=== PATIENT | female | born 1975 | race Caucasian/White ===

== ENCOUNTER → 2017-08-18 | Outpatient (CLI) | payer OTHER | END | disposition home or self-care (01) | LOC: CFH 15:33 | DX: Z12.31 Encounter for screening mammogram for malignant neoplasm of breast (principal) | CPT/HCPCS: G0202 ==

== ENCOUNTER → 2018-06-16 | Outpatient (CLI) | payer OTHER ==
[~2018-06-16] MED LIST: None per pt
[2018-06-16 15:34] LABS: BASOPHILS # (AUTO) 0.04 x10^3/uL (0-0.1); BASOPHILS % (AUTO) 1 % (0-1); EOSINOPHILS # (AUTO) 0.08 x10^3/uL (0-0.4); EOSINOPHILS % (AUTO) 1 % (1-7); LYMPHOCYTES # (AUTO) 2.99 x10^3/uL (1-3.4); LYMPHOCYTES % (AUTO) 36 % (22-44); MD NO; MEAN CORPUSCULAR HEMOGLOBIN 30.5 pg (27.0-34.8); MEAN CORPUSCULAR HGB CONC 34.3 g/dL (32.4-35.8); MEAN CORPUSCULAR VOLUME 88.8 fL (80-100); MEAN PLATELET VOLUME 8.3 fL (7.4-10.4); MONOCYTES # (AUTO) 0.66 x10^3/uL (0.2-0.8); MONOCYTES % (AUTO) 8 % (2-9); NEUTROPHILS # (AUTO) 4.58 x10^3/uL (1.8-6.8); NEUTROPHILS % (AUTO) 55 % (42-75); PLATELET COUNT 314 x10^3/uL (130-400); RED BLOOD COUNT 4.65 x10^6/uL (3.82-5.3); RED CELL DISTRIBUTION WIDTH 12.5 % (9.6-15.2)
[2018-06-16 16:17] LABS: MICROSCOPIC AUTO
[2018-06-16 16:18] LABS: CULTURE INDICATED? NO
== END | disposition home or self-care (01) ==
LOC: STAR 14:42
PROVIDERS: ATTEND Obstetrics & Gynecology
DX: Z01.818 Encounter for other preprocedural examination (principal); N92.0 Excessive and frequent menstruation with regular cycle
CPT/HCPCS: 36415; 81001; 84702; 85025

== ENCOUNTER 2018-06-23 09:28 | Day surgery (SDC) | payer OTHER ==
[~2018-06-23] VITALS: Ht 162.6 cm; Wt 90.9 kg
[2018-06-23] MEDS ORDERED: LACTATED RINGERS 1,000 ML IV SCH (09:52)
[2018-06-23] MEDS ORDERED: ACETAMINOPHEN 500 MG TABLET PO ONE (10:00)
[2018-06-23] MEDS ORDERED: GABAPENTIN 300 MG CAPSULE PO ONE (10:00)
[2018-06-23] MEDS ORDERED: PROPOFOL 10 MG/ML, 20ML ONE (10:17)
[2018-06-23] MEDS ORDERED: MIDAZOLAM 1 MG/ML, 2ML ONE (10:17)
[2018-06-23] MEDS ORDERED: LIDOCAINE-MPF 2% ,5ML ONE (10:17)
[2018-06-23] MEDS ORDERED: ROCURONIUM 10MG/ML,5ML ONE (10:17)
[2018-06-23] MEDS ORDERED: DEXAMETHASONE 4 MG/ML, 1ML ONE (10:17)
[2018-06-23] MEDS ORDERED: GLYCOPYRROLATE 0.2MG/1ML, 5ML ONE (10:17)
[2018-06-23] MEDS ORDERED: FENTANYL PF 250 MCG/5ML ONE (10:18)
[2018-06-23] MEDS ORDERED: BUPIVACAINE/PF-EPI 0.5% 1:200K ONE (10:57)
[2018-06-23] MEDS ORDERED: SCOPOLAMINE PATCH, 1.5MG PATCH.TD72 TD ONE ×2 (11:03→11:30)
[2018-06-23] MEDS ORDERED: KETOROLAC 30 MG/1 ML ONE (11:13)
[2018-06-23] MEDS ORDERED: EPHEDRINE 50 MG/ML, 1ML IVPush PRN (12:00)
[2018-06-23] MEDS ORDERED: HYDROmorphone 1 MG/ML, 1ML IV PRN (12:00)
[2018-06-23] MEDS ORDERED: KETOROLAC 30 MG/1 ML IV PRN (12:00)
[2018-06-23] MEDS ORDERED: ONDANSETRON ODT 8 MG PO PRN (12:00)
[2018-06-23] MEDS ORDERED: LABETALOL 5MG/ML, 20ML IV PRN (12:00)
[2018-06-23] MEDS ORDERED: MEPERIDINE/PF 25MG/0.5ML IVPush PRN (12:00)
[2018-06-23] MEDS ORDERED: MIDAZOLAM 1 MG/ML, 2ML IV PRN (12:00)
[2018-06-23] MEDS ORDERED: ALBUTEROL SULFATE 2.5 MG/3 ML NPPB PRN (12:00)
[2018-06-23] MEDS ORDERED: HYDROcodone/APAP 7.5-325MG/15ML UDC PO PRN (12:00)
[2018-06-23] MEDS ORDERED: OXYcodone 5 MG/5 ML ORAL.SOL UDC ONE (13:30)
[2018-06-23] MEDS ORDERED: FENTANYL PF 100 MCG/2ML ONE (13:31)
[2018-06-23] MEDS: FENTANYL PF 100 MCG/2ML IV PRN ×3 (13:32→14:23)
[2018-06-23] MEDS ORDERED: OXYcodone 5 MG/5 ML ORAL.SOL UDC PO PRN (14:00)
== END 2018-06-23 17:20 | disposition home or self-care (01) ==
LOC: OUT 09:28
PROVIDERS: ATTEND Obstetrics & Gynecology
DX: Z30.2 Encounter for sterilization (principal); N92.0 Excessive and frequent menstruation with regular cycle; N80.0 Endometriosis of uterus; Z88.1 Allergy status to other antibiotic agents; Z88.0 Allergy status to penicillin; Z98.890 Other specified postprocedural states
CPT/HCPCS: 58563; 58670; 88302; 88305; J1100; J1885; J2250; J2704; J3010; J3490; J7120

== ENCOUNTER 2019-08-08 08:51 | Outpatient (CLI) | payer OTHER | END 2019-08-08 23:59 | disposition home or self-care (01) | LOC: CFH 08:51 | PROVIDERS: ATTEND Obstetrics & Gynecology | DX: Z12.31 Encounter for screening mammogram for malignant neoplasm of breast (principal) | CPT/HCPCS: 77067 ==